=== PATIENT | female | born 1955 | race Caucasian/White ===

== ENCOUNTER 2017-12-27 05:53 | Observation (INO) ==
--- NOTE | 2017-12-24 14:33 | MH ---
cc: Skinny Burns MD DATE OF ADMISSION: 12/27/2017 CHIEF COMPLAINT: Lower abdominal hanging pannus with associated hygiene issues, status post surgically induced weight loss. HISTORY OF PRESENT ILLNESS: This is a 61-year-old white female who underwent bariatric gastric sleeve surgery in February 2013, by Dr. Rodrigues. The patient has since lost a significant amount of weight, 87 pounds. She fluctuated somewhat back and for until she stabilized. Currently, she weighs 158 pounds and she is 5 feet tall. The patient has done well with the nutritional aspect postoperatively. She does not need any major maintenance as far as her hemoglobin and vitamins other than routine oral medications. She has had issues with the laxity of the body soft tissue, particularly the lower abdomen, and has a hanging pannus with approximately 2-3 inch overlap and she has contact moisture, rash and redness, itching, swelling and has used several local powders including diaper rash creams, powders, etc. She has used Desitin and presently she has gone through a treatment with Nystatin powder as well and has some partial relief. She wishes to remove the overhang and be able to control the rash and also to have better access for personal hygiene. PAST MEDICAL HISTORY: The patient's additional medical history includes a history of anxiety, depression, fibromyalgia and lupus. She does not complain of any cardiac issues. She is not diabetic. No hypertension. No coronary artery problems. No bleeding disorder. The patient does have general osteoarthritis and has a history of previous skin cancers. PAST SURGICAL HISTORY: Gastric sleeve, hysterectomy in 2006 and a tubal ligation in 1980. She has had a possible bowel obstruction with partial removal of intestines in October 2013. Since that, she has had a lower back pain, cortisone injection. The patient may have gallstones but not symptomatic. The other history is relatively minor. CURRENT MEDICATIONS: 1. Zoloft. 2. Cymbalta. 3. Divalproex. 4. Seroquel. 5. Clonazepam. 6. Sertraline. 7. Fosamax. 8. Bentyl. 9. Synthroid. 10. Inderal. 11. Ranitidine for heartburn. ALLERGIES: THE PATIENT IS NOT ALLERGIC TO ANY MEDICATIONS. SOCIAL HISTORY: Negative for any smoking, alcohol or drug abuse. No other chronic health conditions. No precancerous known conditions. PHYSICAL EXAMINATION: GENERAL: A 61-year-old white female with stable vital signs. The patient is alert, cooperative, fully oriented, emotionally stable. She is alert and oriented. HEAD AND NECK: Shows clear sclerae, equal pupils. Trachea is in midline. No gross thyromegaly. No palpable lymph nodes in the neck. Neck movements are adequate. CHEST: Good expansion with normal breathing. Normal heart sounds. Normal breath sounds. EXTREMITIES: Upper and lower extremities are grossly intact. ABDOMEN: Shows a previous surgical scar that is well healed. The umbilicus does not have any obvious hernia. No other ventral hernias noted. The abdomen is slightly protuberant, otherwise soft. Local examination of the lower abdomen shows an overhang of soft tissue laxity pannus, approximately 2.5 to 3 inch at the longest going from baseline to baseline and slightly towards the back. The pubis is somewhat ptotic. There is redness and rash underneath the pannus with minor skin cracks noted. Some smell is present. There is no acute cellulitis or abscess formation. GENITOURINARY: The genitals externally are normal other than the ptosis. CLINICAL IMPRESSION: Status post surgically induced weight loss with laxity of the overall body tissues with presence of hanging pannus with hygiene issues and rash with panniculitis. PLAN: Perform a panniculectomy and resection of the excess soft tissues only. The patient underwent a detailed explanation of the surgical technique with specific emphasis that there will be no extended surgery as in a regular abdominoplasty. This will be strictly limited to the pannus itself in order to be covered under medically necessary insurance coverage. She was explained the possible risks and complications including bleeding, infection, seroma, hematoma, fat necrosis, wound healing problems, chronic open wounds, chronic pain and possible future corrective surgeries which may or may not be covered by her insurance. She also understands that currently with her medical insurance being Medicare, preauthorization is not possible and that if Medicare decides the surgery to be not medically necessary, they may refuse to make any payment and there may be future appeals process involved. She has been given an advanced medicare beneficiary notice as well as the [employer] information brochures about panniculectomy. The patient is comfortable with her decision to go ahead and has also support from her . The patient's laboratory tests will be reviewed when available in the chart. signed, not fully reviewed Skinny Burns MD VJM/es , 01:48 PM , 02:07 PM [place]
[2017-12-27] MEDS ORDERED: ceFAZolin Inj 2,000 MG in Sodium Chlor 0.9% Inj 80 ML IV.SIG SCH (06:58)
[2017-12-27] MEDS ORDERED: Chlorhexidine Gluconate 2% 1 Pack (2 Cloths) TOPICAL SCH (07:00)
[2017-12-27] MEDS ORDERED: Sodium Chlor 0.9% Inj 500 ML IV.SIG SCH (07:00)
[2017-12-27] MEDS ORDERED: Metoprolol Tartrate 25 MG Tablet PO SCH (07:00)
[2017-12-27] MEDS ORDERED: Lidocaine 1% Inj 50 ML Vial ONE (07:29)
[2017-12-27] MEDS ORDERED: Sod Chloride 0.9% Inj 1,000 ML IV.SIG SCH (07:30)
[2017-12-27] MEDS ORDERED: HYDROmorphone PF Inj 2 MG/ML Vial ONE (07:36)
[2017-12-27] MEDS ORDERED: ceFAZolin 2 GM Premix Inj 2 GM/100 ML BAG IV.SIG ONE (07:49)
[2017-12-27] MEDS ORDERED: EPINEPHRINE TOPICAL ONE (08:38)
[2017-12-27] MEDS ORDERED: RESP: Albuterol Concentrated 2.5 MG/0.5 ML Neb ONE (10:03)
--- NOTE | 2017-12-27 10:27 | P.OP ---
Preoperative Diagnosis: Lower abcomen panniculitis Postoperative Diagnosis: Lower abcomen panniculitis Date of procedure: 12/27/17 Procedure: Lower abdominal panniculectomy Anesthesia: RAKESHA Surgeon: Skinny Burns MD Egg Sorter: Chavo Starr Rn Estimated blood loss (mL): 10 Operation and Findings: Indications: Patient had gastric sleeve surgery induced weight loss, stable, has laxity of body tissues. Lower abdomen has a pannus approx 2.5 to 3 inch overlap in standing position. Causes hygiene issues and constant rashes, had multiple treatments for skin rashes, including OTC Desitin, and prescription Mycostatin off and on. She was explained the surgery of panniculectomy in detail , risks and complications explained, photographs shown, and the differences between a full abdominoplasty for a cosmetic reason versus just panniculectomy for medical reasons only. She understands that the final appearance will not be anatomically / cosmetically pleasing - the distance between the umbilicus and the pubic hair line will be shortened and not proportionate to her normal anatomy. She also accepts the possible risks and complications, including bleeding, infection, wound healing issues, chronic pain, possible future surgeries etc and is willing to go ahead. Procedure: Preop markings were done in standing position in holding area. Patient was brought to the OR, anesthesia started, supine position, lucas inserted, prep and drape done. SCD on. Time out completed. Tumescent mix of 1000 cc NS, 30 cc Lidociane 1% and 2 cc Epi 1:1000 mix used. Incision lines and fatty planes injected. Total approx 400 cc used. Lower incision made through skin and superficial fat layer and then slanted upwards keeping the Billie's fascia intact for approx 1 1.2 inches and then taking it through the Billie's fascia to include the deep fat layer - upto about midway towards the umbilicus. Flap split in the midline and adjusted for final level of excision, sutured with a temporary tacking suture, flap excision done on both sides, tacking suture removed, upper flap thickness and edges matched to the lower flap thickness. Fascia repaired with 2/0 Vicryls, RYAN drains placed deep and brought out laterally. Suprapubic Mons area liposuctioned slightly to even out the surface level, approx 15 cc fat removed. Flap closure done with inverting 3/0 Vicryls only. No skin sutures needed. Area cleaned, xeroform and sterile dressing applied. Intraoperative blood loss less than 10 cc. Flap weight 696 grams. Patient remained stable, no complications. Skinny Burns MD, FACS
[2017-12-27] MEDS ORDERED: fentaNYL Citrate Inj 100 MCG/2 ML Ampul ONE (10:35)
[2017-12-27] MEDS ORDERED: *morphine SULFATE 4 MG/ML PERIprocedure ONLY ONE (11:39)
[2017-12-27] MEDS ORDERED: Lidocaine PF 1% Inj 5 ML Syringe INFILTRATN ONE (12:00)
[2017-12-27] MEDS ORDERED: Neostigmine Inj 5 MG/5 ML Syringe IV.PUSH ONE (12:00)
[2017-12-27] MEDS ORDERED: Glycopyrrolate Inj 1 MG/5 ML Syringe IV.PUSH ONE (12:00)
[2017-12-27] MEDS: HYDROmorphone PF Inj 2 MG/ML Vial IV.PUSH PRN ×2 (15:54→20:50)
[2017-12-27] MEDS: Divalproex 500 MG DR Tablet PO SCH (20:51)
[2017-12-27] MEDS ORDERED: Levothyroxine 75 MCG Tablet PO SCH (21:00)
[2017-12-27] MEDS ORDERED: QUEtiapine 25 MG Tablet PO SCH (21:00)
[2017-12-28] MEDS: HYDROmorphone PF Inj 2 MG/ML Vial IV.PUSH PRN ×3 (01:50→08:01)
[2017-12-28] MEDS ORDERED: Levothyroxine 75 MCG Tablet PO SCH (06:00)
[2017-12-28] MEDS: Divalproex 500 MG DR Tablet PO SCH (08:00)
[2017-12-28] MEDS ORDERED: Duloxetine 60 MG DR Capsule PO SCH (09:00)
[2017-12-28] MEDS ORDERED: Sertraline 50 MG Tablet PO SCH (12:00)
[2017-12-28] MEDS ORDERED: QUEtiapine 25 MG Tablet PO SCH (12:00)
== END 2017-12-28 10:53 | disposition home or self-care (01) ==
LOC: HSDC 05:53 → N07 05:53
PROVIDERS: ADMIT Plastic Surgery; ATTEND Plastic Surgery